=== PATIENT | male | born 1965 | race Hispanic/Latino ===

== ENCOUNTER 2017-11-01 14:58 | Emergency (ER) | payer MEDICAID, OTHER ==
[2017-11-01 15:14] VITALS: TEMP 97.6
--- NOTE | 2017-11-01 15:33 | ED PDOC ---
HPI: SOB/CHF/COPD Time Seen by Provider: 11/01/17 15:17 Chief Complaint (Nursing): Shortness Of Breath History Per: Patient Onset/Duration Of Symptoms: Hrs (1) Current Symptoms Are (Timing): Better Exacerbating Factor(s): Other (Coffee) Severity: Moderate Additional Complaint(s): Difficulty breathing after drinking expresso, was walking in street and couldn' t catch his breath. Denies chest pain. Improved in ED after being plkaced on O2 and burping. Has had cardiac w/u within past year including nuclear stress test which was normal. Past Medical History Vital Signs: Last Vital Signs Temp 97.6 F 11/01/17 15:10 Pulse 85 11/01/17 15:56 Resp 18 11/01/17 15:56 BP 156/92 H 11/01/17 15:56 Pulse Ox 97 11/01/17 15:56 - Medical History PMH: GERD - Family History Family History: States: Unknown Family Hx - Allergies Allergies/Adverse Reactions: Allergies Allergy/AdvReac Type Severity Reaction Status Date / Time No Known Allergies Allergy Verified 11/01/17 15:10 Review of Systems ROS Statement: Except As Marked, All Systems Reviewed And Found Negative Respiratory: Positive for: Shortness of Breath Physical Exam - Reviewed Nursing Documentation Reviewed: Yes Vital Signs Reviewed: Yes - Physical Exam Appears: Positive for: Non-toxic, No Acute Distress Head Exam: Positive for: ATRAUMATIC, NORMAL INSPECTION, NORMOCEPHALIC Skin: Positive for: Normal Color, Warm, DRY Eye Exam: Positive for: EOMI, Normal appearance, PERRL ENT: Positive for: Normal ENT Inspection Neck: Positive for: Normal, Painless ROM Cardiovascular/Chest: Positive for: Regular Rate, Rhythm Respiratory: Positive for: CNT, Normal Breath Sounds Gastrointestinal/Abdominal: Positive for: Normal Exam, Soft Back: Positive for: Normal Inspection Extremity: Positive for: Normal ROM. Negative for: Calf Tenderness, Swelling Neurologic/Psych: Positive for: Alert, Oriented - Laboratory Results Result Diagrams: 11/01/17 15:40 11/01/17 15:40 - ECG O2 Sat by Pulse Oximetry: 93 - Progress Re-evaluation Time: 16:57 Condition: Improved (No pain or SOB) Disposition - Clinical Impression Clinical Impression: Gastritis, GERD (gastroesophageal reflux disease) - Patient ED Disposition Is Patient to be Admitted: No Counseled Patient/Family Regarding: Studies Performed, Diagnosis, Need For Followup, Rx Given - Disposition Referrals: Tate Ramirez [Staff Provider] - Disposition: Routine/Home Disposition Time: 16:58 Condition: FAIR Instructions: Acid Reflux (Gastroesophageal Reflux Disease), Adult (DC), Gastritis Forms: [employer] (Kiswahili)
[2017-11-01 15:46] LABS: BASO # 0.1 K/uL (0.0-0.2); BASO % 0.8 % (0.0-2.0); EOS # 0.1 K/uL (0.0-0.7); EOS % 1.1 % (0.0-4.0); HEMOGLOBIN 16.4 g/dL (12.0-18.0); LYMPH # 1.8 K/uL (1.0-4.3); LYMPH % 26.1 % (20.0-40.0); MEAN CORPUSCULAR HEMOGLOBIN 31.9 pg (27.0-31.0); MEAN CORPUSCULAR HGB CONC 35.4 g/dL (33.0-37.0); MEAN PLATELET VOLUME 9.2 fl (7.2-11.7); MONO # 0.7 K/uL (0.0-0.8); MONO % 9.6 % (0.0-10.0); NEUT # 4.4 K/uL (1.8-7.0); NEUT % 62.4 % (50.0-75.0); NRBC % 0.3 % (0.0-0.0); RBC 5.15 Mil/uL (4.40-5.90); RED CELL DISTRIBUTION WIDTH 13.3 % (11.5-14.5)
[2017-11-01 15:55] VITALS: RESP 18
[2017-11-01 15:56] VITALS: BP 156/92; PULSE 85
[2017-11-01 16:03] LABS: ALB/GLOB RATIO 1.1 (1.0-2.1); ALBUMIN 4.2 g/dL (3.5-5.0); ALT/SGPT 65 U/L (21-72); AST/SGOT 31 U/L (17-59); BLOOD UREA NITROGEN 14 mg/dl (9-20); CALCIUM 9.4 mg/dL (8.4-10.2); GFR AFRICAN-AMERICAN > 60; GFR NON-AFRICAN AMERICAN > 60
[2017-11-01 16:59] VITALS: O2SAT 93
--- NOTE | 2017-11-02 08:05 | CARD ---
APPROVED REPORT EKG Measurement Heart [id number] <Conclusion> Normal sinus rhythm Nonspecific ST and T wave abnormality Abnormal ECG
== END 2017-11-01 17:09 | disposition home or self-care (01) ==
LOC: H.ER 14:58
DX: K29.70 Gastritis, unspecified, without bleeding (principal); K21.9 Gastro-esophageal reflux disease without esophagitis; J44.9 Chronic obstructive pulmonary disease, unspecified